=== PATIENT | male | born 1965 | race Caucasian/White ===

== ENCOUNTER → 2016-09-22 | Outpatient (CLI) | payer OTHER ==
[~2016-09-22] MED LIST: CITA20TA9 PO; KETO10TA PO; MULT-506 PO; OMEP20TA PO; OMEP40CA PO; ONDA8TAB62 SL; PAIN PUMP
[2016-09-22 12:01] LABS: BASO % 0.4 %; BASO ABS # 0.03 K/uL (0-0.2); COMPLETE YES; EOS % 6.1 %; HEMATOCRIT 44.1 % (42-52); IG% 0.4 %; LYMPH % 26.7 %; LYMPH ABS # 1.84 K/uL (1.2-3.4); MEAN CELL VOLUME 84.8 fL (80-100); MEAN CORPUSCULAR HEMOGLOBIN 29.4 pg (25-34); MEAN CORPUSCULAR HGB CONC 34.7 g/dl (32-36); MEAN PLATELET VOLUME 9.8 fL (7.4-10.4); MONO % 15.7 %; NEUT % 50.7 %; PLATELET COUNT 268 K/uL (130-400); WHITE BLOOD COUNT 6.89 K/uL (4.8-10.8)
[2016-09-22 12:34] LABS: BLOOD UREA NITROGEN 9 mg/dl (7-18); BUN/CREATININE RATIO 9.9 (10-20); CALCIUM 8.9 mg/dl (8.5-10.1); CARBON DIOXIDE 32 mmol/L (21-32); CHLORIDE 103 mmol/L (98-107); CREATININE 0.87 mg/dl (0.60-1.40); GLUCOSE 102 mg/dl (70-99); POTASSIUM 3.8 mmol/L (3.5-5.1); SODIUM 142 mmol/L (136-145)
== END | disposition home or self-care (01) ==
LOC: C.CPL 10:51
PROVIDERS: ATTEND Orthopaedic Surgery
DX: Z01.810 Encounter for preprocedural cardiovascular examination (principal); Z01.812 Encounter for preprocedural laboratory examination; S63.502A Unspecified sprain of left wrist, initial encounter; X58.XXXA Exposure to other specified factors, initial encounter

== ENCOUNTER → 2016-10-09 | Day surgery (SDC) | payer OTHER ==
[2016-09-29 10:25] VITALS: Ht 177.8 cm; Wt 118.2 kg
[~2016-10-09] VITALS: Ht 177.8 cm; Wt 118.2 kg
[~2016-10-09] MED LIST changes: +ATROPINE SULFATE 0.1 MG/ML 5ML SYR IV PRN; +BUPIVACAINE/EPINEPHRINE 0.25% 1:200,000 30 ML VIAL ONE; +CEFAZOLIN 2000 MG/60 ML D5W IV SCH; +DEXAMETHASONE SOD INJ 4 MG/ML VIAL ONE; +EpHEDrine SULFATE INJ 50 MG/ML AMP IV PRN; +EpHEDrine SULFATE INJ 50 MG/ML AMP ONE; +EpINEphrine INJ 1MG/ML AMP 1 MG/ML AMP ONE; +FENTANYL CITRATE INJ 50 MCG/1 ML 2 ML VIAL IV PRN; +FENTANYL CITRATE INJ 50 MCG/1 ML 2 ML VIAL ONE; +LACTATED RINGER'S 1000ML 1,000 ML IV SCH; +LIDOCAINE HCL 2% 2 ML VIAL (20MG/ML) ONE; +MIDAZOLAM HCL 1 MG/ML 2ML VIAL ONE; -OMEP40CA PO; +ONDANSETRON INJ 2 MG/ML 2 ML VIAL IV PRN; +ONDANSETRON INJ 2 MG/ML 2 ML VIAL ONE; +OXYCODONE/ACETAMINOPHEN 5-325 TAB PO PRN; +PROPOFOL IV EMULSION 10 MG/ML 20 ML VIAL IV ONE; +ROCURONIUM BROMIDE 10 MG/ML 5 ML VIAL ONE; +ROPIVACAINE 0.5% 5 MG/ML 30 ML VIAL ONE; +SODIUM CHLORIDE 0.9% 1000ML 1,000 ML IV SCH; +SUCCINYLCHOLINE CHLORIDE 20 MG/ML 10 ML VIAL IV ONE
--- NOTE | 2016-10-09 09:40 | History & Physical Bridge - [place] ---
H&P Re-Evaluation Bridge Note: I have examined the patient, reviewed the History & Physical and in the interval since the performance of the History & Physical I have noted the following changes of clinical significance: No changes noted
--- NOTE | 2016-10-09 12:41 | [facility] Post Operative Brief Note ---
Immediate Operative Summary Operative Date Oct 09, 2016. Pre-Operative Diagnosis Right Shoulder Small Rotator Cuff Tear Post-Operative Diagnosis same Procedure(s) Performed Right Shoulder Arthroscopy, Limited Debridement, Acromioplasty, Open Biceps Tenodesis Surgeon Dr. Arik Ramos Telephone Advice Nurse Surgeon(s) Wilmer Jain PA-C Estimated Blood Loss 5cc Findings as above Specimens none Complication(s) None Disposition Recovery Room / PACU
--- NOTE | 2016-10-09 12:47 | Discharge Instructions-SurgCtr ---
Discharge Instructions Visit Reason for Visit: Right Shoulder Rotator Cuff Tear, Bicep Tendonitis Discharge Discharge Diagnosis / Problem: SAME ABOVE Discharge Goals Goal(s): Decrease discomfort, Improve function Activity Recommendations Activity Limitations: as noted below Lifting Limitations: until after follow-up appointment Exercise/Sports Limitations: until after follow-up appointment Driving or Machine Use: WHEN OUT OF THE SLING Anesthesia . Post Anesthesia Instructions: If you have had General Anesthesia or IV Sedation: * Do not drive today. * Resume driving when surgeon permits. * Do not make important decisions or sign legal documents today. * Call surgeon for: 1. Temperature elevations greater than 101 degrees F. 2. Uncontrollable pain. 3. Excessive bleeding. 4. Persistent nausea and vomiting. 5. Medication intolerance (nausea, vomiting or rash). * For nausea and vomiting use only clear liquids such as: tea, soda, bouillon until nausea subsides, then gradually increase diet as tolerated. * If you have any concerns or questions, call your surgeon's office. If physician is unavailable and it is an emergency, call 911 or go to the nearest emergency room. . Instructions / Follow-Up Instructions / Follow-Up MEDICATIONS: * Resume previous medications unless instructed otherwise by your surgeon. * Always take pain medication on a full stomach or with food to avoid upset stomach. * Do not drink alcohol or drive while taking narcotics. * Ibuprofen or Tylenol may be taken if narcotic not needed. SPECIAL CARE INSTRUCTIONS: __ None _X_ Keep extremity elevated and iced x 48 hours; apply ice 20-30 minutes 8-10 times/day. May remove at night. _X_ Sling (WEAR NEEDED FOR COMFORT) __24 hrs/day __ Remove at night __ Shoulder Immobilizer __ 24 hrs/day __ Remove at night _X_ Dressing __ Maintain until seen in office, may shower with plastic over site _X_ Remove dressings in 24-48 hours and then may shower _X_ Cover incisions with band-aids after showering _X_ Do not remove steri-strips (THEY MAY FALL OFF ON THEIR OWN) Call physician if chills or temperature rises above 102 degrees or pain unrelieved by prescribed pain medications at . . Diet Recommendations Home Diet: no limitations Fluid Restriction: None Procedures Procedures Performed: Right Shoulder Arthroscopy, Limited Debridement, Acromioplasty, Open Biceps Tenodesis Pending Studies Studies pending at discharge: no Work Instructions Return To Work: after follow-up Lifting Limitations: NO LIFTING MORE THAN 5 POUNDS WITH RIGHT ARM Medical Emergencies . Who to Call and When: Medical Emergencies: If at any time you feel your situation is an emergency, please call 911 immediately. . Non-Emergent Contact Non-Emergency issues call your: Primary Care Provider Call Non-Emergent contact if: you have a fever, temperature is above 101.5 . . "Provider Documentation" section prepared by Luis Jain.
[2016-10-09 13:25] VITALS: TEMP 36.8
--- NOTE | 2016-10-09 13:26 | OPERATIVE REPORT ---
DATE OF OPERATION: 10/09/2016 PREOPERATIVE DIAGNOSIS: Biceps tendinopathy of the right shoulder with possible rotator cuff tear. POSTOPERATIVE DIAGNOSES: Biceps tendinopathy with large SLAP tear of the right shoulder and disruption of the biceps kaley mechanism, but no complete rotator cuff tears. PROCEDURE: Right shoulder diagnostic arthroscopy with limited debridement, acromioplasty and open subpectoral biceps tenodesis. SURGEON: Dr. Sami Ramos. STACKING MACHINE OPERATOR: Wilmer Jain PA-C, whose assistance was necessary for helping with positioning the arm. ANESTHESIA: General with a right interscalene nerve block. COMPLICATIONS: None. CONDITION: Stable to PACU. INDICATIONS: Wallace is a pleasant 50-year-old male who presented to my office with complaints of right shoulder pain following a work related incident, where he felt a pop in his shoulder. MRI was a little bit inconclusive, but he failed 6 months of conservative treatment including multiple injections and he elected to undergo arthroscopy. DESCRIPTION OF PROCEDURE: On 10/09/2016, he arrived at the [facility] for the above procedure. He was seen in the preoperative holding area and the operative extremity was identified and signed. He was given a preoperative antibiotic and a right interscalene nerve block. He was taken back to the operating room, laid on the table in the supine position and put under general anesthesia. He was then put into the beachchair position. The right shoulder was prepped and draped in sterile fashion. Time-out was done and the patient and operative extremity was properly identified. A scope was introduced into the posterior portal. Diagnostic arthroscopy showed no cartilage damage to the humeral head or the glenoid. There was a large superior labral tear. The biceps tendon looked mostly intact, but the biceps kaley mechanism was slightly torn. There was a lot of fraying of the far anterior supraspinatus. The subscapularis was intact. The infraspinatus and teres minor were intact. An anterior portal was made. A shaver was used to do a limited debridement of the intraarticular structures and the biceps tendon was arthroscopically tenotomized. The articular side of the rotator cuff was examined extensively. At the most anterior portion at the biceps kaley mechanism, there was about 20% partial tear of the rotator cuff, but there was not enough footprint to even put in a suture anchor. The scope was then put into the subacromial space. A lateral portal was made. A shaver was used to do a complete subacromial and subdeltoid bursectomy. An ablator was used to tease the coracoacromial ligament off the undersurface of the acromion and a 5-0 anabel was used to complete an acromioplasty of a Bigliani type 3 acromion. A shaver was used to remove any excess debris and the bursal side of the rotator cuff was examined extensively without evidence of tear. Arthroscopic instruments were removed from the shoulder. Attention was turned to an open biceps tenodesis. A small incision was made over the inferior border of the pec major. Dissection was taken down through the fascia and long head of biceps tendon was delivered out of the wound. The tendon was then whipstitched at the anticipated level of tenodesis and the remainder of the tendon was discarded. A 5-mm hole was drilled in the bicipital groove and the biceps tendon was tenodesed with an Arthrex biceps button that was passed through the posterior cortex in a tension slide technique to deliver the tendon into the 5-mm hole. This gave good fixation. The wound was then irrigated and closed with 3-0 Vicryl and running 3-0 Monocryl. Steri-strips were placed. Portal sites were closed with 3-0 nylon. He was then placed in a soft dressing and regular arm sling. He was then extubated, transferred to a litter and taken to the postanesthesia care unit in stable condition. He tolerated the procedure well. I attest to the content of the Intraoperative Record and any orders documented therein. Any exceptio ns are noted below.
[2016-10-09 14:02] VITALS: BP 105/63; PULSE 80; O2SAT 95
--- NOTE | 2016-10-09 14:10 | Anesthesia Progress Nt - [facility] ---
Anesthesia Post Op Note Date & Time Oct 09, 2016 at 14:10 Vital Signs Pain Intensity: 3 Vital Signs Past 12 Hours Date Time Temp Pulse Resp B/P Pulse Ox O2 Delivery O2 Flow Rate FiO2 10/09/16 14:02 80 14 105/63 95 Room Air 10/09/16 13:25 36.8 73 14 118/67 94 Room Air 10/09/16 13:17 75 7 93 10/09/16 13:17 36.4 74 7 10/09/16 13:13 115/60 10/09/16 13:12 76 9 94 10/09/16 13:12 78 9 10/09/16 13:08 127/58 10/09/16 13:07 75 5 94 10/09/16 13:07 74 5 10/09/16 13:03 130/72 10/09/16 13:02 83 16 10/09/16 13:02 83 16 94 10/09/16 12:58 126/61 10/09/16 12:57 80 13 10/09/16 12:57 82 13 99 10/09/16 12:53 129/66 10/09/16 12:52 76 15 98 10/09/16 12:52 78 15 10/09/16 12:48 131/71 10/09/16 12:47 18 10/09/16 12:47 82 18 10/09/16 12:46 36.3 84 16 133/76 97 Mask 6 10/09/16 12:43 133/76 10/09/16 11:07 59 18 97 10/09/16 11:07 60 10/09/16 11:06 60 10/09/16 11:06 60 24 96 10/09/16 11:05 60 13 97 10/09/16 11:05 59 10/09/16 11:03 116/73 10/09/16 11:00 59 16 97 10/09/16 11:00 60 10/09/16 10:58 129/68 10/09/16 10:55 59 17 97 10/09/16 10:55 59 10/09/16 10:53 124/72 10/09/16 10:50 61 26 97 10/09/16 10:50 61 10/09/16 10:49 61 14 97 10/09/16 10:49 60 10/09/16 10:48 122/74 10/09/16 10:44 60 14 96 10/09/16 10:44 61 10/09/16 10:43 128/74 10/09/16 10:40 59 10/09/16 10:40 59 14 97 10/09/16 10:38 122/74 10/09/16 10:35 60 10/09/16 10:35 60 18 96 10/09/16 10:34 60 14 96 10/09/16 10:34 60 10/09/16 10:33 137/67 10/09/16 10:29 61 18 96 10/09/16 10:29 61 10/09/16 10:28 126/72 10/09/16 10:24 62 10/09/16 10:24 63 19 95 10/09/16 10:23 133/68 10/09/16 10:20 69 10/09/16 10:20 69 19 96 10/09/16 10:18 109/68 10/09/16 10:15 62 15 97 10/09/16 10:15 63 10/09/16 10:13 120/64 10/09/16 10:10 58 10/09/16 10:10 59 14 99 10/09/16 10:09 57 14 100 10/09/16 10:09 56 10/09/16 10:08 124/83 10/09/16 10:04 58 7 97 10/09/16 10:04 59 10/09/16 10:03 59 8 111/61 97 10/09/16 10:03 58 10/09/16 10:00 115/67 10/09/16 09:58 65 0 98 10/09/16 09:58 65 10/09/16 09:53 67 0 97 10/09/16 09:53 67 10/09/16 09:48 63 0 93 10/09/16 09:48 63 10/09/16 09:43 61 0 10/09/16 08:43 71 10/09/16 08:43 71 126/73 96 10/09/16 08:38 36.7 71 16 126/73 96 Room Air Notes Mental Status: alert / awake / arousable, participated in evaluation Pt Amnestic to Procedure: Yes Nausea / Vomiting: adequately controlled Pain: adequately controlled Airway Patency, RR, SpO2: stable & adequate BP & HR: stable & adequate Hydration State: stable & adequate Anesthetic Complications: no major complications apparent
== END | disposition home or self-care (01) ==
LOC: X.SURG 08:30
PROVIDERS: ATTEND Orthopaedic Surgery
DX: M75.21 Bicipital tendinitis, right shoulder (principal); S43.431A Superior glenoid labrum lesion of right shoulder, initial encounter; X50.0XXA Overexertion from strenuous movement or load, initial encounter; F32.9 Major depressive disorder, single episode, unspecified; G47.30 Sleep apnea, unspecified; Z98.890 Other specified postprocedural states; Z90.49 Acquired absence of other specified parts of digestive tract; Y93.89 Activity, other specified; Y92.89 Other specified places as the place of occurrence of the external cause; Y99.8 Other external cause status; Z98.84 Bariatric surgery status; Z88.5 Allergy status to narcotic agent; Z88.8 Allergy status to other drugs, medicaments and biological substances; Z80.8 Family history of malignant neoplasm of other organs or systems

== ENCOUNTER → 2016-11-17 | Outpatient (CLI) | payer OTHER ==
[~2016-11-17] MED LIST changes: -ATROPINE SULFATE 0.1 MG/ML 5ML SYR IV PRN; -BUPIVACAINE/EPINEPHRINE 0.25% 1:200,000 30 ML VIAL ONE; -CEFAZOLIN 2000 MG/60 ML D5W IV SCH; -DEXAMETHASONE SOD INJ 4 MG/ML VIAL ONE; -EpHEDrine SULFATE INJ 50 MG/ML AMP IV PRN; -EpHEDrine SULFATE INJ 50 MG/ML AMP ONE; -EpINEphrine INJ 1MG/ML AMP 1 MG/ML AMP ONE; -FENTANYL CITRATE INJ 50 MCG/1 ML 2 ML VIAL IV PRN; -FENTANYL CITRATE INJ 50 MCG/1 ML 2 ML VIAL ONE; -LACTATED RINGER'S 1000ML 1,000 ML IV SCH; -LIDOCAINE HCL 2% 2 ML VIAL (20MG/ML) ONE; -MIDAZOLAM HCL 1 MG/ML 2ML VIAL ONE; -ONDANSETRON INJ 2 MG/ML 2 ML VIAL IV PRN; -ONDANSETRON INJ 2 MG/ML 2 ML VIAL ONE; -OXYCODONE/ACETAMINOPHEN 5-325 TAB PO PRN; -PROPOFOL IV EMULSION 10 MG/ML 20 ML VIAL IV ONE; -ROCURONIUM BROMIDE 10 MG/ML 5 ML VIAL ONE; -ROPIVACAINE 0.5% 5 MG/ML 30 ML VIAL ONE; -SODIUM CHLORIDE 0.9% 1000ML 1,000 ML IV SCH; -SUCCINYLCHOLINE CHLORIDE 20 MG/ML 10 ML VIAL IV ONE
== END | disposition home or self-care (01) ==
LOC: C.PATHSPEC 08:15
PROVIDERS: ATTEND Dentist Oral and Maxillofacial Pathology
DX: K06.8 Other specified disorders of gingiva and edentulous alveolar ridge (principal)

== ENCOUNTER 2017-12-05 19:42 | Emergency (ER) | payer OTHER ==
[~2017-12-05] VITALS: Ht 175.3 cm; Wt 131.4 kg
[~2017-12-05 19:42] MED LIST changes: -KETO10TA PO
[2017-12-05 19:51] VITALS: BP 126/79; PULSE 80; TEMP 36.3; O2SAT 95; Ht 175.3 cm; Wt 131.4 kg
[2017-12-05] MEDS ORDERED: BUPIVACAINE 0.5 % 5 MG/1 ML MPF 30ML VIAL INFIL ONE (20:15)
[2017-12-05] MEDS ORDERED: GELATIN SPONGE 12-7MM EXT ONE (20:15)
[2017-12-05] MEDS ORDERED: DIPHTHERIA/TETANUS/PERTUSSIS 0.5 ML SYR/VIAL IM. ONE (20:15)
[2017-12-05] MEDS ORDERED: XYLOCAINE 1%/SOD BICARB 20 ML VIAL INFIL ONE (20:15)
--- NOTE | 2017-12-05 20:33 | DIAGNOSTIC IMAGING REPORT ---
R FINGER(S) MIN 2 VIEWS ROUTINE CLINICAL HISTORY: Tablesaw laceration to right distal 5th digit trauma COMPARISON: None. DISCUSSION: Partial traumatic amputation of the tuft of the distal phalanx right fifth finger. No evidence of dislocation. Localized soft tissue disruption. IMPRESSION: Partial traumatic amputation of the tuft distal phalanx right fifth finger. Localized soft tissue disruption. The above report was generated using voice recognition software. It may contain grammatical, syntax or spelling errors. Electronically signed by: Wallace Loving M.D. 12/05/2017 8:31 PM Dictated Date/Time: 12/05/2017 8:31 PM
[2017-12-05] MEDS ORDERED: CEFTRIAXONE SOD 350MG/ML 1 GM VIAL IM ONE (20:45)
[2017-12-05] MEDS ORDERED: CITA40TA12 PO (21:08)
[2017-12-05] MEDS ORDERED: CEPH500C PO (21:10)
[2017-12-05] MEDS ORDERED: CHOL1CAP95 PO (21:17)
--- NOTE | 2017-12-05 21:20 | EMERGENCY ROOM VISIT NOTE ---
ED Visit Note First contact with patient: 20:08 This Patient was discussed with the physician placement assistant, Clay Han PA-C. The pertinent historical and physical exam findings were confirmed. I agree with the studies ordered and with the interpretations of these studies. I agree with the disposition and care plan.
--- NOTE | 2017-12-05 22:46 | EMERGENCY ROOM VISIT NOTE ---
History First contact with patient: 20:08 Chief Complaint: LACERATION/CUT (SUT/DERMABOND) Stated Complaint: LACERATION TO RT HAND, 5TH DIGIT Nursing Triage Summary: Patient reports that he cut right pinky with table saw, patient won't take towel off hand but states that the tip of his finger is still on. History of Present Illness The patient is a 52 year old male who presents to the Emergency Room with complaints of laceration to his right fifth finger that occurred about 1 hour ago. The patient states that he was using a table saw, and accidentally cut the very tip of his finger. He is not up-to-date on his tetanus. The bleeding is controlled. He does not report other injuries and is on blood thinners. He rates his current discomfort a 4/10, burning in nature, and nonradiating. Review of Systems More than 10 systems were reviewed and otherwise negative with the exception of history of present illness. Past Medical/Surgical History Medical Problems: (1) Diabetes Family History Diabetes mellitus FH: cancer FH: heart disease Hypertension Social History Smoking Status: Never Smoker Drug Use: none Marital Status: Housing Status: lives with family Occupation Status: employed Current/Historical Medications Scheduled Cephalexin Monohydrate (Keflex), 500 MG PO TID Cholecalciferol (Vitamin D3), 1 CAP PO MONTHLY Citalopram Hydrobromide (Celexa), 1 TAB PO DAILY Multivitamin (Multivitamin), 1 TAB PO DAILY Omeprazole (Omeprazole), 1 TAB PO QAM [Pain Pump], UD Physical Exam Vital Signs Date Time Temp Pulse Resp B/P (MAP) Pulse Ox O2 Delivery O2 Flow Rate FiO2 12/05/17 19:51 36.3 80 18 126/79 95 Room Air Physical Exam VITALS: Vitals are noted on the nurse's note and reviewed by myself. Vital signs stable. GENERAL: Well-developed, well-nourished, white male, who is in no acute distress and resting comfortably. Patient is cooperative with the examination. HEAD: Normocephalic atraumatic. HEART: Regular rate and rhythm without murmurs gallops or rubs. LUNGS: Clear to auscultation bilaterally without wheezes, rales or rhonchi. No retractions or accessory muscle use. MUSCULOSKELETAL: There is obvious traumatic laceration/partial amputation to the distal end of the right fifth digit. The injury is oblique in nature, essentially cutting through with the very distal tip of the digit through the mid aspect of the fingernail. This measures roughly 2.5 cm in length. The bleeding is minimal and well controlled. No other injuries noted. The patient is able to flex and extend the digit without difficulty. NEURO: Patient was alert and oriented to person place and time. Medical Decision & Procedures ER Provider Diagnostic Interpretation: R FINGER(S) MIN 2 VIEWS ROUTINE CLINICAL HISTORY: Tablesaw laceration to right distal 5th digit trauma COMPARISON: None. DISCUSSION: Partial traumatic amputation of the tuft of the distal phalanx right fifth finger. No evidence of dislocation. Localized soft tissue disruption. IMPRESSION: Partial traumatic amputation of the tuft distal phalanx right fifth finger. Localized soft tissue disruption. Medications Administered Medications (Trade) Dose Ordered Sig/Mariano Route Start Time Stop Time Status Last Admin Dose Admin Diphtheria/ Pertussis/Tetanus Vacc (Adacel Inj) 0.5 ml ONCE ONCE IM. 12/05/17 20:15 12/05/17 20:16 DC 12/05/17 20:31 0.5 ML Ceftriaxone Sodium (Rocephin Im) 1,000 mg NOW ONCE IM 12/05/17 20:45 12/05/17 20:46 DC 12/05/17 21:09 1,000 MG Procedure Laceration repair. Patient elects to have their laceration repaired. Verbal consent was obtained to perform the procedure. There is an abundance of materials available for the procedure. Patient is not allergic to latex. Using sterile technique the wound was cleaned with Betadine. The area was sterilely draped. 6 ml of a 50:50 mix of 0.5% Sensorcaine and 1% buffered lidocaine was used to anesthetize the right fifth digit. Once the patient was anesthetized, the wound was copiously irrigated under pressure with sterile saline. The wound was explored and there is bone palpable along the distal tip consistent with open fracture. This was again irrigated and flushed with Betadine and greater than 1 L normal saline. The wound was repaired using Gelfoam and a pressure dressing with the wound edges being well approximated. Hemostasis was achieved. The patient was given a tetanus booster. Patient tolerated the procedure well without complications. Blood loss was negligible. ED Course Physical exam and history were performed. Nursing notes, EMR, and Medication List were personally reviewed. Patient appears to have open fracture with fingertip avulsion. The patient was given Rocephin IM here in the department. His tetanus was updated. I discussed the case with my attending physician, who remained involved in care decision-making. The patient's wound was cleansed and repaired with a Gelfoam dressing. He will be given a continuation course of Keflex. The patient will need close follow-up with orthopedics, as he does have an open fracture. The patient was pleased with this plan and voiced understanding. He is otherwise invited back to the ER with any new, worsening, or concerning symptoms. The chart was completed utilizing [employer] Speech Voice Recognition Software. Grammatical errors, random word insertions, pronoun errors, and incomplete sentences are an occasional consequence of this system due to software limitations, ambient noise, and hardware issues. Any formal questions or concerns about the content, text, or information contained within the body of this dictation should be directly addressed to the provider for clarification. . Medical Decision Differential diagnosis includes, but is not limited to: Sprain, strain, fracture , dislocation, subluxation, contusion, open fracture, and others Impression Primary Impression: Open fracture of finger, distal phalanx Departure Information Dispostion Home / Self-Care Condition GOOD Prescriptions Cephalexin Monohydrate (Keflex) 500 Mg Cap 500 MG PO TID for 7 Days, #21 CAP Prov: Clay Han PA-C 12/05/17 Referrals Sami Ramos, DO Forms HOME CARE DOCUMENTATION FORM, IMPORTANT VISIT INFORMATION Patient Instructions My [facility] Additional Instructions You were seen and evaluated today on an emergency basis only. This is not a substitute for, or an effort to provide, complete comprehensive medical care. It is not possible to recognize and treat all injuries or illnesses in a single emergency department visit. For this reason it is recommended that you followup with [facility], Dr. Ramos's office, on Thursday for recheck of your condition. Please call the office first thing Thursday morning to arrange the appointment. Let them know you are seen in the ER. Cephalexin(Keflex) 500mg: Take one pill 3 times daily for 7 days to prevent infection. All antibiotics can cause diarrhea. If this occurs and you feel worse or it does not resolve in 1-2 days follow up with your doctor or return to the Emergency Department as this could be signs of serious underlying problems. Any medication can cause an allergic reaction, stop the pills immediately and return to the ER for rash, hives, breathing difficulties, or swelling. Try to keep the wound dressing in place. If it becomes dirty you may replace the gauze. Try not to get the gauze wet. You are welcome to return to the emergency department anytime with new, worsening, or concerning symptoms.
== END 2017-12-05 21:20 | disposition home or self-care (01) ==
LOC: C.EDB 19:43 → C.EDD 21:20
DX: S62.636B Displaced fracture of distal phalanx of right little finger, initial encounter for open fracture (principal); W31.2XXA Contact with powered woodworking and forming machines, initial encounter; E11.9 Type 2 diabetes mellitus without complications; Z83.3 Family history of diabetes mellitus; Z82.49 Family history of ischemic heart disease and other diseases of the circulatory system; Z23 Encounter for immunization

== ENCOUNTER → 2017-12-17 | Day surgery (SDC) | payer OTHER ==
[2017-12-14 10:04] VITALS: Ht 177.8 cm; Wt 130.9 kg
[~2017-12-17] VITALS: Ht 177.8 cm; Wt 130.9 kg
[~2017-12-17] MED LIST changes: +ATROPINE SULFATE 0.1 MG/ML 5ML SYR IV PRN; +BUPIVACAINE 0.5 % 5 MG/1 ML PF 10ML VIAL ONE; +CEFAZOLIN 3000MG IV PUSH 22.5 ML IV SCH; +CHOL1CAP95 PO; -CITA20TA9 PO; +CITA40TA12 PO; +FENTANYL CITRATE INJ 50 MCG/1 ML 2 ML VIAL IV PRN; +FENTANYL CITRATE INJ 50 MCG/1 ML 2 ML VIAL ONE; +LACTATED RINGER'S 1000ML 1,000 ML IV SCH; +LIDOCAINE HCL 2% 2 ML VIAL (20MG/ML) ONE; +LIDOCAINE HCL 2% LOCAL 20 ML VIAL ONE; +MIDAZOLAM HCL 1 MG/ML 2ML VIAL ONE; -ONDA8TAB62 SL; +ONDANSETRON INJ 2 MG/ML 2 ML VIAL IV PRN; +PROPOFOL IV EMULSION 10 MG/ML 20 ML VIAL IV ONE
--- NOTE | 2017-12-17 08:44 | [facility] Post Operative Brief Note ---
Immediate Operative Summary Operative Date Dec 17, 2017. Pre-Operative Diagnosis Injury due to machinery, laceration of nail bed Post-Operative Diagnosis Same Procedure(s) Performed Right Fifth Finger V-Y Advancement Surgeon Dr. Lillian Morales Truck Driver'S Offsider Surgeon(s) Arik Kelsey PA-C Estimated Blood Loss 0 Findings Consistent with Post-Op Diagnosis Specimens None Drains None Anesthesia Type MAC Complication(s) none Disposition Accompanied Pt To Recover: no Disposition: Recovery Room / PACU
[2017-12-17 08:46] VITALS: TEMP 36.6
--- NOTE | 2017-12-17 08:50 | Discharge Instructions-SurgCtr ---
Discharge Instructions Date of Service Dec 17, 2017. Visit Reason for Visit: Injury Due To Machinery, Laceration Of Nail Bed Discharge Discharge Diagnosis / Problem: same Discharge Goals Goal(s): Improve function Activity Recommendations Activity Limitations: as noted below Lifting Limitations: gradually increase as tolerated Exercise/Sports Limitations: until after follow-up appointment Shower/Bathe: keep incision dry Anesthesia . Post Anesthesia Instructions: If you have had General Anesthesia or IV Sedation: * Do not drive today. * Resume driving when surgeon permits. * Do not make important decisions or sign legal documents today. * Call surgeon for: 1. Temperature elevations greater than 101 degrees F. 2. Uncontrollable pain. 3. Excessive bleeding. 4. Persistent nausea and vomiting. 5. Medication intolerance (nausea, vomiting or rash). * For nausea and vomiting use only clear liquids such as: tea, soda, bouillon until nausea subsides, then gradually increase diet as tolerated. * If you have any concerns or questions, call your surgeon's office. If physician is unavailable and it is an emergency, call 911 or go to the nearest emergency room. . Diet Recommendations Home Diet: no limitations Procedures Procedures Performed: Right Fifth Finger V-Y Advancement Pending Studies Studies pending at discharge: no Medical Emergencies . Who to Call and When: Medical Emergencies: If at any time you feel your situation is an emergency, please call 911 immediately. . Non-Emergent Contact Non-Emergency issues call your: Primary Care Provider . . "Provider Documentation" section prepared by Sahil Morales. .
--- NOTE | 2017-12-17 09:02 | Anesthesia Progress Nt - [facility] ---
Anesthesia Post Op Note Date & Time Dec 17, 2017 at 09:02 Vital Signs Pain Intensity: 0 Vital Signs Past 12 Hours Date Time Temp Pulse Resp B/P (MAP) Pulse Ox O2 Delivery O2 Flow Rate FiO2 12/17/17 08:46 36.6 67 16 113/71 (85) 94 Room Air 12/17/17 07:21 36.8 77 20 130/84 (99) 93 Room Air Notes Mental Status: alert / awake / arousable, participated in evaluation Pt Amnestic to Procedure: Yes Nausea / Vomiting: adequately controlled Pain: adequately controlled Airway Patency, RR, SpO2: stable & adequate BP & HR: stable & adequate Hydration State: stable & adequate Anesthetic Complications: no major complications apparent
[2017-12-17 09:05] VITALS: BP 110/75; PULSE 61; O2SAT 94
--- NOTE | 2017-12-17 12:07 | OPERATIVE REPORT ---
DATE OF OPERATION: 12/17/2017 PREOPERATIVE DIAGNOSIS: Partial fingertip amputation right small finger. POSTOPERATIVE DIAGNOSIS: Same. PROCEDURE: Debridement of the finger, removal of the distal fragment of the distal phalanx, V-Y closure of the skin. SURGEON: Dr. Morales. FINANCIAL ECONOMIST: Sami Kelsey PA-C. COMPLICATIONS: Zero. BLOOD LOSS: Zero. DESCRIPTION OF PROCEDURE: The patient was taken to the operating room, a local anesthetic provided first to his finger. Betadine scrub performed and actually prepped with ChloraPrep as well. We placed a small tourniquet. We modified the old trauma amputation. We were able to remove part of the distal phalanx. I was able to fashion a skin closure. A small flap from the volar aspect covered nicely over the open area. We irrigated thoroughly, closed the flap with 4-0 nylon suture. Sterile dressings applied. The patient returned to recovery room. Discharged home in improved stable condition. There were no complications. I attest to the content of the Intraoperative Record and any orders documented therein. Any exception s are noted below.
== END | disposition home or self-care (01) ==
LOC: X.SURG 07:09
PROVIDERS: ATTEND Orthopaedic Surgery Orthopaedic Surgery of the Spine
DX: S61.316A Laceration without foreign body of right little finger with damage to nail, initial encounter (principal); W31.2XXA Contact with powered woodworking and forming machines, initial encounter; G47.33 Obstructive sleep apnea (adult) (pediatric); K21.9 Gastro-esophageal reflux disease without esophagitis; Z99.89 Dependence on other enabling machines and devices; Z88.5 Allergy status to narcotic agent